=== PATIENT | male | born 1985 | race Caucasian/White ===

== ENCOUNTER 2016-09-03 17:52 | Emergency (ER) | payer SELFPAY ==
[~2016-09-03] VITALS: Ht 180.3 cm; Wt 83.6 kg
[2016-09-03 19:50] LABS: HEMATOCRIT 41.1 % (38.0-50.0); MCHC 32.6 G/DL (30.0-36.0); MCV 85.8 FL (86-99); MEAN PLAT.VOLUME 10.8 uM^3 (9.0-12.4); PLATELET COUNT 228 K/uL (156-360); RED BLOOD COUNT 4.79 M/uL (4.00-5.50); WHITE BLOOD COUNT 7.4 K/uL (4.1-10.2)
[2016-09-03 19:59] LABS: CHLORIDE 100 mEq/L (99-109); POTASSIUM 3.4 mEq/L (3.7-5.4); SODIUM 141 mEq/L (136-147)
[2016-09-03 20:01] LABS: GLUCOSE 93 mg/dL (70-99)
[2016-09-03 20:02] LABS: ANION GAP 10 MEQ/L (2-14)
[2016-09-03 20:03] LABS: TOTAL BILIRUBIN 0.3 mg/dL (0.0-1.0)
[2016-09-03 20:04] LABS: SERUM ETHYL ALCOHOL < 10 mg/dL
[2016-09-03 20:05] LABS: ALKALINE PHOSPHATASE 63 IU/L (3-129); GFR ESTIMATE (CALCULATED) > 59 mL/min/
[2016-09-03 20:06] LABS: UREA NITROGEN (BUN) 10 mg/dL (9-23)
[2016-09-03 22:30] VITALS: BP 149/93
== END 2016-09-03 22:31 | disposition home or self-care (01) ==
LOC: EME 17:52
PROVIDERS: Nurse Practitioner Family
DX: S06.0X0A Concussion without loss of consciousness, initial encounter (principal); R55 Syncope and collapse; W18.30XA Fall on same level, unspecified, initial encounter
CPT/HCPCS: 70450; 80053; 81003; 85027; 93005; 99281; 99284; G0480

== ENCOUNTER 2016-09-08 22:19 | Emergency (ER) | payer OTHER ==
[~2016-09-08] VITALS: Ht 180.3 cm; Wt 83.8 kg
[2016-09-08 22:48] LABS: EOSINOPHIL COUNT 0.1 K/uL (0-0.3); HEMATOCRIT 41.8 % (38.0-50.0); IMMATURE GRANULOCYTE (%) 0.4 % (0.0-0.7); INSTRUMENT ABS NEUTROPHIL CT 3.3 K/uL; LYMPHOCYTE COUNT 3.2 K/uL (1.0-2.8); MCH 28.4 PG (29.0-34.0); MCHC 33.7 G/DL (30.0-36.0); MCV 84.1 FL (86-99); MEAN PLAT.VOLUME 10.7 uM^3 (9.0-12.4); MONOCYTE (%) 5.7 % (3-12); MONOCYTE COUNT 0.4 K/uL (0-0.8); NEUTROPHIL (%) 46.5 % (45-76); NEUTROPHIL COUNT 3.3 K/uL (1.8-6.4); PLATELET COUNT 221 K/uL (156-360); RBC DIS.WIDTH-CV 12.7 % (11.8-14.6); RBC DIS.WIDTH-SD 38.7 % (39-53); RED BLOOD COUNT 4.97 M/uL (4.00-5.50); WHITE BLOOD COUNT 7.2 K/uL (4.1-10.2)
[2016-09-08 22:56] LABS: CHLORIDE 101 mEq/L (99-109); POTASSIUM 3.8 mEq/L (3.7-5.4); SODIUM 141 mEq/L (136-147)
[2016-09-08 22:58] LABS: GLUCOSE 135 mg/dL (70-99)
[2016-09-08 22:59] LABS: ANION GAP 11 MEQ/L (2-14)
[2016-09-08 23:02] LABS: GFR ESTIMATE (CALCULATED) > 59 mL/min/
[2016-09-08 23:03] LABS: UREA NITROGEN (BUN) 8 mg/dL (9-23)
[2016-09-09 00:28] LABS: SERUM ETHYL ALCOHOL < 10 mg/dL
[2016-09-09 00:31] LABS: SALICYLATE < 5.0 MG/DL (15-30)
[2016-09-09 00:44] LABS: AMPHETAMINE NEGATIVE (500 ng/mL); BARBITURATES NEGATIVE (200 ng/mL); BENZODIAZEPINES NEGATIVE (150 ng/mL); COCAINE NEGATIVE (150 ng/mL); INTERNAL CONTROLS VALID? YES; METHADONE NEGATIVE (200 ng/mL); METHAMPHETAMINE NEGATIVE (500 ng/mL); OPIATES (MORPHINE) PRESUMPTIVE POSITIVE (100 ng/mL); OXYCODONE NEGATIVE (100 ng/mL); PHENCYCLIDINE NEGATIVE (25 ng/mL); PROPOXYPHENE NEGATIVE (300 ng/mL); THC CANNABINOIDS NEGATIVE (50 ng/mL); TRICYCLIC ANTIDEPRESSANTS NEGATIVE (300 ng/mL)
[2016-09-09 00:45] LABS: ADD MEDTOX COMMENT Y
[2016-09-09] MEDS ORDERED: NARCAN4 MG NS (01:23)
[2016-09-09] MEDS ORDERED: ZOFRAN4 MG PO (02:49)
[2016-09-09] MEDS ORDERED: AUGMENTIN875 MG PO (02:49)
[2016-09-09 03:00] VITALS: BP 124/84
== END 2016-09-09 03:00 | disposition home or self-care (01) ==
LOC: EME 22:19
PROVIDERS: Emergency Medicine
PROC: 3E0234Z Introduction of Serum, Toxoid and Vaccine into Muscle, Percutaneous Approach (ICD-10-PCS; principal; 2016-09-08)
DX: T40.1X1A Poisoning by heroin, accidental (unintentional), initial encounter (principal); Y92.810 Car as the place of occurrence of the external cause; R40.20 Unspecified coma; R06.81 Apnea, not elsewhere classified; R23.0 Cyanosis; R07.89 Other chest pain; S80.872A Other superficial bite, left lower leg, initial encounter; W54.0XXA Bitten by dog, initial encounter; Y92.524 Gas station as the place of occurrence of the external cause; F11.20 Opioid dependence, uncomplicated; Z23 Encounter for immunization
CPT/HCPCS: 71010; 80048; 84999; 85025; 93005; 99281; 99285; G0480; J2310; J2405; J7030

== ENCOUNTER 2016-09-12 17:40 | Emergency (ER) | payer OTHER ==
[~2016-09-12] VITALS: Ht 180.3 cm; Wt 84.1 kg
[~2016-09-12 17:40] MED LIST: AUGMENTIN875 MG PO; NARCAN4 MG NS; ZOFRAN4 MG PO
[2016-09-12 18:02] VITALS: BP 145/85
== END 2016-09-12 20:54 | disposition home or self-care (01) ==
LOC: EME 17:40
PROC: 3E0234Z Introduction of Serum, Toxoid and Vaccine into Muscle, Percutaneous Approach (ICD-10-PCS; principal; 2016-09-12)
DX: Z20.3 Contact with and (suspected) exposure to rabies (principal)
CPT/HCPCS: 99281; 99284